=== PATIENT | female | born 1985 | race Caucasian/White ===

== ENCOUNTER 2016-08-12 01:47 | Inpatient (IN) | payer OTHER ==
[~2016-08-12] VITALS: Ht 147.3 cm; Wt 51.3 kg
[2016-08-12] VITALS (12 sets, daily range): BP systolic 97–107; BP diastolic 44–70
[2016-08-12 02:31] LABS: BILIRUBIN,URINE NEGATIVE (NEG); GLUCOSE,URINE NEGATIVE (NEG); NITRITE,URINE NEGATIVE (NEG); PROTEIN,URINE NEGATIVE (NEG-TRACE); UROBILINOGEN,URINE 0.2 mg/dL (0.2 mg/dL)
[2016-08-12 02:43] LABS: BACTERIA,URINE MANY /HPF (0-FEW); RBC,URINE 0 /HPF (0-2); SQUAMOUS EPITHELIAL CELL,UR MOD /LPF
[2016-08-12 03:14] LABS: BASO # 0.1 x10^3/uL (0.0-0.2); BASO % 1 % (0-3); EOS % 1 % (0-3); HEMATOCRIT 38.3 % (36.0-47.0); HEMOGLOBIN 12.4 g/dL (12.0-15.5); LYMPH # 2.2 x10^3/uL (1.0-4.8); LYMPH % 17 % (24-48); MEAN CORPUSCULAR HEMOGLOBIN 29 pg (25-35); MEAN CORPUSCULAR HGB CONC 32 g/dL (31-37); MEAN CORPUSCULAR VOLUME 90 fL (79-100); MONO % 6 % (0-9); NEUT % 76 % (31-73); PLATELET COUNT 324 x10^3/uL (140-400); RED BLOOD COUNT 4.28 x10^6/uL (3.50-5.40); RED CELL DISTRIBUTION WIDTH 13.1 % (11.5-14.5); WHITE BLOOD COUNT 13.3 x10^3/uL (4.0-11.0)
[2016-08-12 03:23] LABS: CALCIUM 8.8 mg/dL (8.5-10.1); GFR 65.6; POTASSIUM 3.5 mmol/L (3.5-5.1)
[2016-08-12 03:28] LABS: ALBUMIN 3.2 g/dL (3.4-5.0); ALBUMIN/GLOBULIN RATIO 0.8 (1.0-1.7); TOTAL BILIRUBIN 0.3 mg/dL (0.2-1.0); TOTAL PROTEIN 7.3 g/dL (6.4-8.2)
[2016-08-12] MEDS ORDERED: CONTRAST GIVEN MC PRN (04:15)
[2016-08-12] MEDS ORDERED: IOHEXOL 300 MG/ML 75 ML VIAL IV ONE (04:30)
--- NOTE | 2016-08-12 05:14 | RAD ---
PROCEDURE CT abdomen pelvis with contrast HISTORY Abdominal pain TECHNIQUE After IV infusion of 75] cc of Optiray-320, helical CT scanning of the abdomen and pelvis was performed.GI contrast was not administered. COMPARISON FINDINGS The liveer is homogeous in appearance and normal in size. The spleen is unremarkable and normal in size. The pancreas is homogeneous in appearance and no focal enlargement is seen. There has been prior cholecystectomy. No focal aneurysmal dilatation of the abdominal aorta is seen. No enlarged abdominal or pelvic lymphadenopathy is seen. No soft tissue mass is seen. No obstructive bowel pattern or bowel wall thickening or inflammatory change is seen. [A trace of free fluid in the pelvis is seen. There is no free air. The lung bases are clear. Both kidneys are functioning and no hydronephrosis or renal mass or perinephric fluid collection is seen. The urinary bladder wall is smooth. No adrenal masses are seen. [A normal appendix is not seen however there is a dilated blind-ending tubular structure medial the cecum consistent with and inflamed appendix measuring 19 millimeters in diameter with mild surrounding inflammation. This is seen in the right parasagittal posterior pelvis. IMPRESSION Acute appendicitis. No abscess or free air. Electronically signed by: Epi Alba MD (Aug 12, 2016 05:13:21)
[2016-08-12] MEDS ORDERED: ACETAMINOPHEN 500 MG TABLET PO ONE (05:30)
[2016-08-12] MEDS ORDERED: MORPHINE SULFATE 4 MG/ML DISP.SYRIN. IV PRN (05:30)
[2016-08-12] MEDS ORDERED: ONDANSETRON PF 4 MG/2 ML VIAL. IV PRN ×3 (05:30→10:15)
[2016-08-12] MEDS ORDERED: ONDANSETRON PF 4 MG/2 ML VIAL. IV ONE (05:30)
[2016-08-12] MEDS ORDERED: MORPHINE SULFATE 4 MG/ML DISP.SYRIN. IV ONE (06:00)
--- NOTE | 2016-08-12 07:55 | PDOC1 ---
History and Physical Date of Admission Date of Admission DATE: 08/12/16 TIME: 07:52 Identification/Chief Complaint Chief Complaint Abd pain Source Source: Patient History of Present Illness History of Present Illness 30 yo female with 1 week of bloating but in the last 24 hours having severe abdominal pain mostly RLQ sharp and constant. Some nausea but no vomiting. Past Medical History Pulmonary: Asthma Past Surgical History Past Surgical History: Cholecystectomy, Tonsillectomy Family History Family History: No Significant Social History Smoke: No ALCOHOL: none Drugs: None Current Medications Current Medications Current Medications Iohexol (Omnipaque 300 Mg/ml) 75 ml 1X ONCE IV Last administered on 08/12/16 04:17; Start 08/12/16 at 04:30; Stop 08/12/16 at 04:31; Status DC Info (Do NOT chart on this entry -- for MONITORING) 1 each PRN DAILY PRN MC SEE COMMENTS; Start 08/12/16 at 04:15; Stop 08/14/16 at 04:14 Acetaminophen (Tylenol) 1,000 mg 1X ONCE PO ; Start 08/12/16 at 05:30; Stop 08/12 at 05:31; Status DC Ondansetron HCl (Zofran) 4 mg 1X ONCE IV Last administered on 08/12/16 05:38; Start 08/12/16 at 05:30; Stop 08/12/16 at 05:31; Status DC Ondansetron HCl (Zofran) 4 mg PRN Q8HRS PRN IV NAUSEA/VOMITING; Start 08/12/16 at 05:30; Stop 08/13/16 at 05:29 Morphine Sulfate 4 mg PRN Q2HR PRN IV SEVERE PAIN; Start 08/12/16 at 05:30; Stop 08/13/16 at 05:29 Morphine Sulfate 4 mg 1X ONCE IV Last administered on 08/12/16 05:39; Start at 06:00; Stop 08/12/16 at 06:01; Status DC Allergies Allergies: Coded Allergies: Sulfa (Sulfonamide Antibiotics) (Verified Allergy, Intermediate, RASH, 08/12) ROS Gastrointestinal: Yes Abdominal Pain, Yes Nausea Physical Exam General: Alert, Oriented X3, Cooperative, mild distress HEENT: Atraumatic, PERRLA, EOMI Lungs: Clear to auscultation, Normal air movement Heart: RRR, no gallops, no murmurs Breasts: Normal Abdomen: Normal bowel sounds, Soft, Other (TTP RLQ) Rectal Exam: not examined Extremities: No edema Skin: No significant lesion Neuro: Normal speech Psych/Mental Status: Mental status NL Vitals Vitals Vital Signs Date Time Temp Pulse Resp B/P Pulse Ox O2 Delivery O2 Flow Rate FiO2 08/12/16 06:15 97.8 72 18 102/60 95 Room Air 97.8 Labs Labs Laboratory Tests Test 08/12/16 01:52 08/12/16 02:30 Urine Collection Type Unknown Urine Color Yellow Urine Clarity Clear Urine pH 6.0 Urine Specific [place] 1.020 Urine Protein Negativemg/dL (NEG-TRACE) Urine Glucose (UA) Negativemg/dL (NEG) Urine Ketones (Stick) Negativemg/dL (NEG) Urine Blood Negative (NEG) Urine Nitrite Negative (NEG) Urine Bilirubin Negative (NEG) Urine Urobilinogen Dipstick 0.2mg/dL (0.2 mg/dL) Urine Leukocyte Esterase Negative (NEG) Urine RBC 0/HPF (0-2) Urine WBC 1-4/HPF (0-4) Urine Squamous Epithelial Cells Mod/LPF Urine Bacteria Many/HPF (0-FEW) Urine Mucus Mod/LPF White Blood Count 13.3x10^3/uL (4.0-11.0) Red Blood Count 4.28x10^6/uL (3.50-5.40) Hemoglobin 12.4g/dL (12.0-15.5) Hematocrit 38.3% (36.0-47.0) Mean Corpuscular Volume 90fL (79-100) Mean Corpuscular Hemoglobin 29pg (25-35) Mean Corpuscular Hemoglobin Concent 32g/dL (31-37) Red Cell Distribution Width 13.1% (11.5-14.5) Platelet Count 324x10^3/uL (140-400) Neutrophils (%) (Auto) 76% (31-73) Lymphocytes (%) (Auto) 17% (24-48) Monocytes (%) (Auto) 6% (0-9) Eosinophils (%) (Auto) 1% (0-3) Basophils (%) (Auto) 1% (0-3) Neutrophils # (Auto) 10.1x10^3uL (1.8-7.7) Lymphocytes # (Auto) 2.2x10^3/uL (1.0-4.8) Monocytes # (Auto) 0.8x10^3/uL (0.0-1.1) Eosinophils # (Auto) 0.1x10^3/uL (0.0-0.7) Basophils # (Auto) 0.1x10^3/uL (0.0-0.2) Sodium Level 139mmol/L (136-145) Potassium Level 3.5mmol/L (3.5-5.1) Chloride Level 102mmol/L (98-107) Carbon Dioxide Level 27mmol/L (21-32) Anion Gap 10 (6-14) Blood Urea Nitrogen 13mg/dL (7-20) Creatinine 1.0mg/dL (0.6-1.0) Estimated GFR (Cockcroft-Gault) 65.6 BUN/Creatinine Ratio 13 (6-20) Glucose Level 89mg/dL (70-99) Calcium Level 8.8mg/dL (8.5-10.1) Total Bilirubin 0.3mg/dL (0.2-1.0) Aspartate Amino Transf (AST/SGOT) 15U/L (15-37) Alanine Aminotransferase (ALT/SGPT) 26U/L (14-59) Alkaline Phosphatase 51U/L (46-116) Total Protein 7.3g/dL (6.4-8.2) Albumin 3.2g/dL (3.4-5.0) Albumin/Globulin Ratio 0.8 (1.0-1.7) Lipase 154U/L (73-393) Laboratory Tests Test 08/12/16 01:52 08/12/16 02:30 Urine Collection Type Unknown Urine Color Yellow Urine Clarity Clear Urine pH 6.0 Urine Specific [place] 1.020 Urine Protein Negativemg/dL (NEG-TRACE) Urine Glucose (UA) Negativemg/dL (NEG) Urine Ketones (Stick) Negativemg/dL (NEG) Urine Blood Negative (NEG) Urine Nitrite Negative (NEG) Urine Bilirubin Negative (NEG) Urine Urobilinogen Dipstick 0.2mg/dL (0.2 mg/dL) Urine Leukocyte Esterase Negative (NEG) Urine RBC 0/HPF (0-2) Urine WBC 1-4/HPF (0-4) Urine Squamous Epithelial Cells Mod/LPF Urine Bacteria Many/HPF (0-FEW) Urine Mucus Mod/LPF White Blood Count 13.3x10^3/uL (4.0-11.0) Red Blood Count 4.28x10^6/uL (3.50-5.40) Hemoglobin 12.4g/dL (12.0-15.5) Hematocrit 38.3% (36.0-47.0) Mean Corpuscular Volume 90fL (79-100) Mean Corpuscular Hemoglobin 29pg (25-35) Mean Corpuscular Hemoglobin Concent 32g/dL (31-37) Red Cell Distribution Width 13.1% (11.5-14.5) Platelet Count 324x10^3/uL (140-400) Neutrophils (%) (Auto) 76% (31-73) Lymphocytes (%) (Auto) 17% (24-48) Monocytes (%) (Auto) 6% (0-9) Eosinophils (%) (Auto) 1% (0-3) Basophils (%) (Auto) 1% (0-3) Neutrophils # (Auto) 10.1x10^3uL (1.8-7.7) Lymphocytes # (Auto) 2.2x10^3/uL (1.0-4.8) Monocytes # (Auto) 0.8x10^3/uL (0.0-1.1) Eosinophils # (Auto) 0.1x10^3/uL (0.0-0.7) Basophils # (Auto) 0.1x10^3/uL (0.0-0.2) Sodium Level 139mmol/L (136-145) Potassium Level 3.5mmol/L (3.5-5.1) Chloride Level 102mmol/L (98-107) Carbon Dioxide Level 27mmol/L (21-32) Anion Gap 10 (6-14) Blood Urea Nitrogen 13mg/dL (7-20) Creatinine 1.0mg/dL (0.6-1.0) Estimated GFR (Cockcroft-Gault) 65.6 BUN/Creatinine Ratio 13 (6-20) Glucose Level 89mg/dL (70-99) Calcium Level 8.8mg/dL (8.5-10.1) Total Bilirubin 0.3mg/dL (0.2-1.0) Aspartate Amino Transf (AST/SGOT) 15U/L (15-37) Alanine Aminotransferase (ALT/SGPT) 26U/L (14-59) Alkaline Phosphatase 51U/L (46-116) Total Protein 7.3g/dL (6.4-8.2) Albumin 3.2g/dL (3.4-5.0) Albumin/Globulin Ratio 0.8 (1.0-1.7) Lipase 154U/L (73-393) Images Images CT show enlarged appendix with inflammation, no abscess VTE Prophylaxis Ordered VTE Prophylaxis Devices: Yes VTE Pharmacological Prophylaxi: Contraindicated Assessment/Plan Assessment/Plan Acute appendicitis Plan L/S Appendectomy ALICIA TRACEY MD Aug 12, 2016 07:55
[2016-08-12] MEDS ORDERED: IV RINGERS,LACTATED 1000ML 1,000 ML IV SCH (08:39)
[2016-08-12] MEDS ORDERED: ROCURONIUM 50 MG/5 ML VIAL. ONE (08:44)
[2016-08-12] MEDS ORDERED: ONDANSETRON PF 4 MG/2 ML VIAL. ONE (08:44)
[2016-08-12] MEDS ORDERED: LIDOCAINE 2% 100 MG/5 ML SYRINGE. ONE (08:44)
[2016-08-12] MEDS ORDERED: PROPOFOL 20 ML IV ONE (08:44)
[2016-08-12] MEDS ORDERED: DEXAMETHASONE SOD PHOS 20 MG/5 ML VIAL. ONE (08:44)
[2016-08-12] MEDS ORDERED: ISOFLURANE 61 TO 120 MINUTES. IH ONE (08:44)
[2016-08-12] MEDS ORDERED: MORPHINE SULFATE 2 MG/ML DISP.SYRIN. IV PRN ×2 (08:45→10:15)
[2016-08-12] MEDS ORDERED: LIDOCAINE 1% 1 ML SYRINGE. ID PRN (08:45)
[2016-08-12] MEDS ORDERED: PROCHLORPERAZINE 10 MG/2 ML VIAL. IV PRN (08:45)
[2016-08-12] MEDS ORDERED: HYDROMORPHONE 2 MG/ML VIAL. IV PRN (08:45)
[2016-08-12] MEDS ORDERED: FENTANYL PF 100 MCG/2 ML VIAL. IV PRN (08:45)
[2016-08-12] MEDS ORDERED: LEVALBUTEROL INH ONE (09:00)
[2016-08-12] MEDS ORDERED: BUPIVACAINE-EPI 0.25%-1:200000 MPF 30 ML VIAL. ONE (09:29)
[2016-08-12] MEDS: PIPERACILLIN/TAZOBACTAM 3.375 GM in IV NORMAL SALINE 50ML 50 ML IV SCH ×4 (09:35→23:45)
[2016-08-12] MEDS ORDERED: NEOSTIGMINE METHYLSULFATE 5 MG/5 ML SYRINGE. ONE (09:53)
[2016-08-12] MEDS ORDERED: GLYCOPYRROLATE 1 MG/5 ML VIAL. ONE (09:53)
[2016-08-12] MEDS ORDERED: IV DEXTROSE 5%-LACT RINGERS 1,000 ML IV SCH (10:03)
[2016-08-12] MEDS ORDERED: OXYCODONE/APAP 5/325 TABLET. PO PRN ×2 (10:15)
[2016-08-12] MEDS ORDERED: 0.9 % SODIUM CHLORIDE 10 ML DISP.SYRIN. IV PRN (10:15)
[2016-08-12] MEDS: FENTANYL PF 100 MCG/2 ML VIAL. IV PRN ×2 (10:16→10:34)
--- NOTE | 2016-08-12 11:22 | ACF ---
Admission Forms Criteria ABDOMINAL PAIN Clinical Indications for Admission to Inpatient Care (Place 'X' for any and all applicable criteria): Admission is indicated for ANY ONE of the following(1)(2)(3)(4)(5): [X]I. Inpatient admission required rather than observation care (Also use Abdominal Pain: Observation Care, as appropriate) because of ANY ONE of the following: [ ]a) Severe pain requiring acute inpatient management [X]b) Identification of etiology/finding that requires inpatient care (eg, aortic dissection, free air) [ ]c) Absent bowel sounds with complete ileus(6) [ ]d) Suspected toxic megacolon [ ]e) Severe electrolyte abnormalities requiring inpatient care [ ]f) High fever or infection requiring inpatient admission as indicated by ANY ONE of following(7)(8): [ ] i) Appropriate outpatient or observational care antimicrobial treatment unavailable, not effective, or not feasible [ ] ii) Documented bacteremia [ ] iii) Temperature > 104.9 degrees F (oral) [ ] iv) T >103.1 F (oral) or < 96.8 F(rectal) that does not respond to all emergency treatment measures [ ]g) Signs of intestinal obstruction [B] [ ]h) Hemodynamic instability [ ]i) IV fluid to replace significant ongoing losses (greater than 3 L/m2 per day) (12)(13) [ ]j) Percutaneous or open drainage (eg, abscess, biliary tract ) procedures [ ]k) Parenteral nutrition regimen that must be implemented on inpatient basis [ ]l) Other condition,treatment or monitoring requiring inpatient admission. [ ]II. Peritoneal signs present [ ]III. Surgery needed that cannot be performed on an ambulatory basis. [ ]IV. Evaluation requires patient to not eat or drink for extended period ( eg, more than 24 hours). [ ]V. Contraindications and/or Inappropriate clinical situations for Observational Care in patients with abdominal pain, when ANY ONE of the following is required: [ ]a) Thorough evaluation is required to prevent catastrophic events due to delays in diagnosing (e.g.Mesenteric ischemia) 1,3 [ ]b) Patient with severe pathology or with chronic symptoms unlikely to improve in the ED stay (3) [ ]. General contraindications and/or Inappropriate clinical situations for Observational Care in patients with abdominal pain, when ANY ONE of the following is required: [ ]a) Prediction of prolongation of LOS based on ANY ONE of the following may be considered as a contraindication for observational care 2, 3, 4, 5, 6, 7, 8, 9, 10, 11 [ ]i) Age > 65 yrs. [ ]ii) Patient arriving by ambulance [ ]iii) Patient with high acuity [ ]iv) Patient requiring vital sign monitoring [ ]v) Patient on IV medication [ ]b) Systolic blood pressures 180mmHg 3,12 [ ]c) Patient with altered mental status including delirium and other alteration of consciousness, (3) [ ]d) Patient whose discharge disposition will be to a longterm home or rehabilitation home should not be managed in Emergency Department Observation Unit. CMS rule requires 3 days hospital stay before such placement.3,13 [ ]e) Patient with failure to thrive due to broad array of etiologies 3,16,17 [ ]f) Inability to ambulate 3,14 Extended stay beyond goal length of stay may be needed for(2)(3): [ ]a) Persistent abdominal pain with suspected intra-abdominal process [ ]b) Diagnosed condition requiring continued stay (e.g., pancreatitis, complicated diverticulitis) [ ]c) Surgery (e.g., colectomy) The original [facility] content created by [employer] has been revised. The portions of the content which have been revised are identified through the use of italic text or in bold, and [facility] has neither reviewed nor approved the modified material.All other unmodified content is copyright [facility]. Please see references footnoted in the original [facility] edition 2016 Admission Criteria Met?: Yes SAMANTHA KEMP Aug 12, 2016 11:22
--- NOTE | 2016-08-12 11:44 | OP ---
DATE OF SURGERY: 08/12/2016 PREOPERATIVE DIAGNOSIS: Acute appendicitis. POSTOPERATIVE DIAGNOSIS: Acute appendicitis. PROCEDURE: Laparoscopic appendectomy. SURGEON: Jose Tracey MD. INDICATIONS: The patient is a 30-year-old female who was admitted to the hospital with a 24-hour history of severe abdominal pain localized in the right lower quadrant. CT scan showing signs consistent with acute appendicitis; no abscess. Procedure of laparoscopic appendectomy was explained to the patient in detail. Risks, benefits were also discussed including bleeding, infection, injury to intra-abdominal contents, possibly sustaining further open operations. Alternatives of this procedure were also discussed with the patient who seemed to understand and gave verbal and written consent to have the procedure performed. DESCRIPTION OF PROCEDURE: The patient was taken to the operating room and placed in the supine position, general anesthesia was initiated. Once the patient was asleep and intubated, her abdomen was prepped and draped in usual sterile fashion using ChloraPrep. An area just below the umbilicus was injected 0.25% Marcaine with epinephrine. Incision made with an 11 blade scalpel and a Veress needle was placed within the abdomen. Pneumoperitoneum was achieved. Once this was complete, a 12 mm port was placed and a 5 mm camera was placed within the abdomen. The abdomen was inspected. No other abnormalities were noted. It was noted that the tip of the appendix was quite dilated inflamed. Two 5 mm ports were then placed, one low in the midline pelvis and one in the right upper quadrant under direct visualization. The camera was moved to the pelvic port. The appendix was grasped. A window was propagated in the mesoappendix with [place] dissector. Endo-JOSEFINA stapler was used to staple and transect the base of the appendix. A second load was used to staple and transect the mesoappendix. Appendix was then placed in an EndoCatch bag and removed from the umbilicus. Right lower quadrant and pelvis were irrigated and suctioned dry. Hemostasis seemed to be appropriate, the pneumoperitoneum was reduced. All ports were removed. Fascial defect at the umbilicus closed with [id number] Vicryl suture and the skin was reapproximated at all port sites with 4-0 subcuticular Monocryl. Mastisol, Steri-Strips and Band-Aids were applied as dressings. The patient was awakened, extubated in the operating room, taken to recovery in stable condition. All sponge, instrument counts listed as correct. Estimated blood loss was 10 mL. JOSE TRACEY MD DR: BISI/curtis JOB#: [id number] / [id number]
[2016-08-12] MEDS: KETOROLAC 15 MG/ML VIAL. IV SCH ×4 (12:00→23:46)
[2016-08-12] MEDS: LACTOBACILLUS ACIDOPH & BULGAR 1 TABLET. PO SCH (17:24)
[2016-08-12] MEDS ORDERED: birth control PO (19:59)
[2016-08-12] MEDS ORDERED: RANI150T2 PO (19:59)
[2016-08-12] MEDS ORDERED: FAMOTIDINE 20 MG TABLET. PO SCH (21:00)
--- NOTE | 2016-08-12 21:58 | PHYS DOC ---
Past Medical History Past Medical History: Asthma, IBS Past Surgical History: Cholecystectomy, Tonsillectomy Alcohol Use: Rarely Drug Use: None Adult General Chief Complaint Chief Complaint: ABDOMINAL PAIN HPI HPI This is a 30-year-old female whose presenting with lower abdominal pain for the last 24 hours with some mild nausea as well. She denies any fever or chills. She does state she has IBS but states this feels different than her usual IBS symptoms. She states she had a stool earlier today that was fairly unremarkable. She denies any other significant health problems. She rates her pain approximately 7 out of 10 on the pain scale but at this time is not requesting any pain medications Review of Systems Review of Systems Constitutional: Denies fever or chills [] Eyes: Denies change in visual acuity, redness, or eye pain [] HENT: Denies nasal congestion or sore throat [] Respiratory: Denies cough or shortness of breath [] Cardiovascular: No additional information not addressed in HPI [] GI: Has abdominal pain, has nausea, denies vomiting, denies bloody stools or diarrhea [] : Denies dysuria or hematuria [] Musculoskeletal: Denies back pain or joint pain [] Integument: Denies rash or skin lesions [] Neurologic: Denies headache, focal weakness or sensory changes [] Endocrine: Denies polyuria or polydipsia [] Current Medications Current Medications Current Medications Medications (Trade) Dose Ordered Sig/[place] Start Time Stop Time Status Last Admin Dose Admin Info (Do NOT chart on this entry -- for MONITORING) 1 each PRN DAILY PRN 08/12/16 04:15 08/14/16 04:14 Iohexol (Omnipaque 300 Mg/ml) 75 ml 1X ONCE 08/12/16 04:30 08/12/16 04:31 DC 08/12/16 04:17 75 ML Physical Exam Physical Exam Constitutional: Well developed, well nourished, no acute distress, non-toxic appearance. [] HENT: Normocephalic, atraumatic, bilateral external ears normal, oropharynx moist, no oral exudates, nose normal. [] Eyes: PERRLA, EOMI, conjunctiva normal, no discharge. [] Neck: Normal range of motion, no tenderness, supple, no stridor. [] Cardiovascular:Heart rate regular rhythm, no murmur [] Lungs & Thorax: Bilateral breath sounds clear to auscultation [] Abdomen: Bowel sounds normal, soft, RLQ tenderness, no masses, no pulsatile masses. [] Skin: Warm, dry, no erythema, no rash. [] Back: No tenderness, no CVA tenderness. [] Extremities: No tenderness, no cyanosis, no clubbing, ROM intact, no edema. [] Neurologic: Alert and oriented X 3, normal motor function, normal sensory function, no focal deficits noted. [] Psychologic: Affect normal, judgement normal, mood normal. [] Current Patient Data Vital Signs Vital Signs Date Time Temp Pulse Resp B/P Pulse Ox O2 Delivery O2 Flow Rate FiO2 08/12/16 02:16 97.6 92 16 116/75 99 Room Air 97.6 Lab Values Laboratory Tests Test 08/12/16 01:52 08/12/16 02:30 Urine Collection Type Unknown Urine Color Yellow Urine Clarity Clear Urine pH 6.0 Urine Specific [place] 1.020 Urine Protein Negativemg/dL (NEG-TRACE) Urine Glucose (UA) Negativemg/dL (NEG) Urine Ketones (Stick) Negativemg/dL (NEG) Urine Blood Negative (NEG) Urine Nitrite Negative (NEG) Urine Bilirubin Negative (NEG) Urine Urobilinogen Dipstick 0.2mg/dL (0.2 mg/dL) Urine Leukocyte Esterase Negative (NEG) Urine RBC 0/HPF (0-2) Urine WBC 1-4/HPF (0-4) Urine Squamous Epithelial Cells Mod/LPF Urine Bacteria Many/HPF (0-FEW) Urine Mucus Mod/LPF White Blood Count 13.3x10^3/uL (4.0-11.0) H Red Blood Count 4.28x10^6/uL (3.50-5.40) Hemoglobin 12.4g/dL (12.0-15.5) Hematocrit 38.3% (36.0-47.0) Mean Corpuscular Volume 90fL (79-100) Mean Corpuscular Hemoglobin 29pg (25-35) Mean Corpuscular Hemoglobin Concent 32g/dL (31-37) Red Cell Distribution Width 13.1% (11.5-14.5) Platelet Count 324x10^3/uL (140-400) Neutrophils (%) (Auto) 76% (31-73) H Lymphocytes (%) (Auto) 17% (24-48) L Monocytes (%) (Auto) 6% (0-9) Eosinophils (%) (Auto) 1% (0-3) Basophils (%) (Auto) 1% (0-3) Neutrophils # (Auto) 10.1x10^3uL (1.8-7.7) H Lymphocytes # (Auto) 2.2x10^3/uL (1.0-4.8) Monocytes # (Auto) 0.8x10^3/uL (0.0-1.1) Eosinophils # (Auto) 0.1x10^3/uL (0.0-0.7) Basophils # (Auto) 0.1x10^3/uL (0.0-0.2) Sodium Level 139mmol/L (136-145) Potassium Level 3.5mmol/L (3.5-5.1) Chloride Level 102mmol/L (98-107) Carbon Dioxide Level 27mmol/L (21-32) Anion Gap 10 (6-14) Blood Urea Nitrogen 13mg/dL (7-20) Creatinine 1.0mg/dL (0.6-1.0) Estimated GFR (Cockcroft-Gault) 65.6 BUN/Creatinine Ratio 13 (6-20) Glucose Level 89mg/dL (70-99) Calcium Level 8.8mg/dL (8.5-10.1) Total Bilirubin 0.3mg/dL (0.2-1.0) Aspartate Amino Transferase (AST) 15U/L (15-37) Alanine Aminotransferase (ALT) 26U/L (14-59) Alkaline Phosphatase 51U/L (46-116) Total Protein 7.3g/dL (6.4-8.2) Albumin 3.2g/dL (3.4-5.0) L Albumin/Globulin Ratio 0.8 (1.0-1.7) L Lipase 154U/L (73-393) Laboratory Tests 08/12/16 02:30 Laboratory Tests 08/12/16 02:30 EKG EKG [] Radiology/Procedures Radiology/Procedures PROCEDURE CT abdomen pelvis with contrast HISTORY Abdominal pain TECHNIQUE After IV infusion of 75] cc of Optiray-320, helical CT scanning of the abdomen and pelvis was performed.GI contrast was not administered. COMPARISON FINDINGS The liveer is homogeous in appearance and normal in size. The spleen is unremarkable and normal in size. The pancreas is homogeneous in appearance and no focal enlargement is seen. There has been prior cholecystectomy. No focal aneurysmal dilatation of the abdominal aorta is seen. No enlarged abdominal or pelvic lymphadenopathy is seen. No soft tissue mass is seen. No obstructive bowel pattern or bowel wall thickening or inflammatory change is seen. [A trace of free fluid in the pelvis is seen. There is no free air. The lung bases are clear. Both kidneys are functioning and no hydronephrosis or renal mass or perinephric fluid collection is seen. The urinary bladder wall is smooth. No adrenal masses are seen. [A normal appendix is not seen however there is a dilated blind-ending tubular structure medial the cecum consistent with and inflamed appendix measuring 19 millimeters in diameter with mild surrounding inflammation. This is seen in the right parasagittal posterior pelvis. IMPRESSION Acute appendicitis. No abscess or free air. Course & Med Decision Making Course & Med Decision Making Pertinent Labs and Imaging studies reviewed. (See chart for details) This 30-year-old female has a CT of her abdomen and pelvis does demonstrate findings consistent with an acute appendicitis. Her laboratory workup was remarkable for slightly elevated WBC count but no other acute abnormalities. Patient was given fluids and pain control and department. I discussed the case with the on-call surgeon, Dr. Lara, who agreed to accept to his surgery service and she will likely go to the OR later today. She was admitted without incident. Dragon Disclaimer Dragon Disclaimer This electronic medical record was generated, in whole or in part, using a voice recognition dictation system. Departure Departure Referrals: UNKNOWN PCP NAME (PCP) REDDY LIVINGSTON DO Aug 12, 2016 21:58
[2016-08-13 03:06] VITALS: BP 97/57
[2016-08-13 03:54] LABS: BASO # 0.1 x10^3/uL (0.0-0.2); BASO % 1 % (0-3); EOS % 0 % (0-3); HEMATOCRIT 34.5 % (36.0-47.0); HEMOGLOBIN 11.3 g/dL (12.0-15.5); LYMPH # 1.4 x10^3/uL (1.0-4.8); LYMPH % 12 % (24-48); MEAN CORPUSCULAR HEMOGLOBIN 30 pg (25-35); MEAN CORPUSCULAR HGB CONC 33 g/dL (31-37); MEAN CORPUSCULAR VOLUME 90 fL (79-100); MONO % 7 % (0-9); NEUT % 80 % (31-73); PLATELET COUNT 344 x10^3/uL (140-400); RED BLOOD COUNT 3.83 x10^6/uL (3.50-5.40); RED CELL DISTRIBUTION WIDTH 13.3 % (11.5-14.5); WHITE BLOOD COUNT 11.2 x10^3/uL (4.0-11.0)
[2016-08-13 04:15] LABS: CALCIUM 9.2 mg/dL (8.5-10.1); CREATININE 1.1 mg/dL (0.6-1.0); GFR 58.7; POTASSIUM 3.4 mmol/L (3.5-5.1)
[2016-08-13] MEDS: PIPERACILLIN/TAZOBACTAM 3.375 GM in IV NORMAL SALINE 50ML 50 ML IV SCH (06:00)
[2016-08-13] MEDS: KETOROLAC 15 MG/ML VIAL. IV SCH (06:01)
[2016-08-13 07:00] VITALS: BP 98/61
[2016-08-13] MEDS: LACTOBACILLUS ACIDOPH & BULGAR 1 TABLET. PO SCH (08:40)
--- NOTE | 2016-08-13 09:34 | DISCH ---
DISCHARGE INSTRUCTIONS Condition on Discharge Condition on Discharge: Stable Activity After Discharge Activity Instructions for Disc: Avoid exertion Other activity instructions: No lifting >20lbs for 2 weeks Diet after Discharge Diet after Discharge: Regular Wound Incision Care Other wound/incision instructi: Mary hernandez starting today Contacting the after DC Call your doctor for: If your condition worsens Follow-Up Follow up with: Dr Tracey in 2 weeks ALICIA TRACEY MD Aug 13, 2016 09:34
--- NOTE | 2016-08-13 09:37 | PDOC3 ---
Discharge Summary Visit Information Date of Admission: Aug 12, 2016 Date of Discharge: Aug 13, 2016 Admitting Diagnosis: Acute appendicitis Final Diagnosis Problems Medical Problems: (1) Appendicitis Status: Acute Brief Hospital Course Allergies Allergies Coded Allergies Type Severity Reaction Last Updated Verified Sulfa (Sulfonamide Antibiotics) Allergy Intermediate RASH 08/12/16 Yes Vital Signs Vital Signs Date Time Temp Pulse Resp B/P Pulse Ox O2 Delivery O2 Flow Rate FiO2 08/13/16 07:00 98.7 80 20 98/61 96 Room Air 98.7 08/12/16 11:56 2.0 Lab Results Laboratory Tests Test 08/12/16 01:15 08/12/16 01:52 08/12/16 02:30 08/13/16 03:40 Bedside Urine HCG, Qualitative Hcg negative (Negative) Urine Collection Type Unknown Urine Color Yellow Urine Clarity Clear Urine pH 6.0 Urine Specific [place] 1.020 Urine Protein Negativemg/dL (NEG-TRACE) Urine Glucose (UA) Negativemg/dL (NEG) Urine Ketones (Stick) Negativemg/dL (NEG) Urine Blood Negative (NEG) Urine Nitrite Negative (NEG) Urine Bilirubin Negative (NEG) Urine Urobilinogen Dipstick 0.2mg/dL (0.2 mg/dL) Urine Leukocyte Esterase Negative (NEG) Urine RBC 0/HPF (0-2) Urine WBC 1-4/HPF (0-4) Urine Squamous Epithelial Cells Mod/LPF Urine Bacteria Many/HPF (0-FEW) Urine Mucus Mod/LPF White Blood Count 13.3x10^3/uL (4.0-11.0) 11.2x10^3/uL (4.0-11.0) Red Blood Count 4.28x10^6/uL (3.50-5.40) 3.83x10^6/uL (3.50-5.40) Hemoglobin 12.4g/dL (12.0-15.5) 11.3g/dL (12.0-15.5) Hematocrit 38.3% (36.0-47.0) 34.5% (36.0-47.0) Mean Corpuscular Volume 90fL (79-100) 90fL (79-100) Mean Corpuscular Hemoglobin 29pg (25-35) 30pg (25-35) Mean Corpuscular Hemoglobin Concent 32g/dL (31-37) 33g/dL (31-37) Red Cell Distribution Width 13.1% (11.5-14.5) 13.3% (11.5-14.5) Platelet Count 324x10^3/uL (140-400) 344x10^3/uL (140-400) Neutrophils (%) (Auto) 76% (31-73) 80% (31-73) Lymphocytes (%) (Auto) 17% (24-48) 12% (24-48) Monocytes (%) (Auto) 6% (0-9) 7% (0-9) Eosinophils (%) (Auto) 1% (0-3) 0% (0-3) Basophils (%) (Auto) 1% (0-3) 1% (0-3) Neutrophils # (Auto) 10.1x10^3uL (1.8-7.7) 8.9x10^3uL (1.8-7.7) Lymphocytes # (Auto) 2.2x10^3/uL (1.0-4.8) 1.4x10^3/uL (1.0-4.8) Monocytes # (Auto) 0.8x10^3/uL (0.0-1.1) 0.8x10^3/uL (0.0-1.1) Eosinophils # (Auto) 0.1x10^3/uL (0.0-0.7) 0.0x10^3/uL (0.0-0.7) Basophils # (Auto) 0.1x10^3/uL (0.0-0.2) 0.1x10^3/uL (0.0-0.2) Sodium Level 139mmol/L (136-145) 141mmol/L (136-145) Potassium Level 3.5mmol/L (3.5-5.1) 3.4mmol/L (3.5-5.1) Chloride Level 102mmol/L (98-107) 105mmol/L (98-107) Carbon Dioxide Level 27mmol/L (21-32) 27mmol/L (21-32) Anion Gap 10 (6-14) 9 (6-14) Blood Urea Nitrogen 13mg/dL (7-20) 9mg/dL (7-20) Creatinine 1.0mg/dL (0.6-1.0) 1.1mg/dL (0.6-1.0) Estimated GFR (Cockcroft-Gault) 65.6 58.7 BUN/Creatinine Ratio 13 (6-20) Glucose Level 89mg/dL (70-99) 119mg/dL (70-99) Calcium Level 8.8mg/dL (8.5-10.1) 9.2mg/dL (8.5-10.1) Total Bilirubin 0.3mg/dL (0.2-1.0) Aspartate Amino Transf (AST/SGOT) 15U/L (15-37) Alanine Aminotransferase (ALT/SGPT) 26U/L (14-59) Alkaline Phosphatase 51U/L (46-116) Total Protein 7.3g/dL (6.4-8.2) Albumin 3.2g/dL (3.4-5.0) Albumin/Globulin Ratio 0.8 (1.0-1.7) Lipase 154U/L (73-393) Laboratory Tests Test 08/13/16 03:40 White Blood Count 11.2x10^3/uL (4.0-11.0) Red Blood Count 3.83x10^6/uL (3.50-5.40) Hemoglobin 11.3g/dL (12.0-15.5) Hematocrit 34.5% (36.0-47.0) Mean Corpuscular Volume 90fL (79-100) Mean Corpuscular Hemoglobin 30pg (25-35) Mean Corpuscular Hemoglobin Concent 33g/dL (31-37) Red Cell Distribution Width 13.3% (11.5-14.5) Platelet Count 344x10^3/uL (140-400) Neutrophils (%) (Auto) 80% (31-73) Lymphocytes (%) (Auto) 12% (24-48) Monocytes (%) (Auto) 7% (0-9) Eosinophils (%) (Auto) 0% (0-3) Basophils (%) (Auto) 1% (0-3) Neutrophils # (Auto) 8.9x10^3uL (1.8-7.7) Lymphocytes # (Auto) 1.4x10^3/uL (1.0-4.8) Monocytes # (Auto) 0.8x10^3/uL (0.0-1.1) Eosinophils # (Auto) 0.0x10^3/uL (0.0-0.7) Basophils # (Auto) 0.1x10^3/uL (0.0-0.2) Sodium Level 141mmol/L (136-145) Potassium Level 3.4mmol/L (3.5-5.1) Chloride Level 105mmol/L (98-107) Carbon Dioxide Level 27mmol/L (21-32) Anion Gap 9 (6-14) Blood Urea Nitrogen 9mg/dL (7-20) Creatinine 1.1mg/dL (0.6-1.0) Estimated GFR (Cockcroft-Gault) 58.7 Glucose Level 119mg/dL (70-99) Calcium Level 9.2mg/dL (8.5-10.1) Brief Hospital Course Ms. Woo is a 30 old female with acute appendicitis underwent L/S Appendectomy without problems. Feeling good today, afebrile and improved wbc plan D/C today Discharge Information Condition at Discharge: Improved Follow Up: Weeks (two) Disposition/Orders: D/C to Home Scheduled ([ control]) 1 TAB PO HS (Reported) Ranitidine Hcl (Ranitidine Hcl) 150 MG PO HS (Reported) ALICIA TRACEY MD Aug 13, 2016 09:37
[2016-08-13 11:00] VITALS: BP 107/72
[2016-08-14] MEDS ORDERED: ONDA4TAB10 SL (05:56)
--- NOTE | 2016-08-14 16:05 | PATHOLOGY ---
PATHOLOGY REPORT * * * * * * * * FINAL DIAGNOSIS: Appendix, laparoscopic appendectomy: - Acute appendicitis. COMMENT: There is no evidence rupture. (JALENM:; d/t: 08/14/16) REPORT ELECTRONICALLY SIGNED BY: Luis Miguel Guan M.D. DATE/TIME: 08/14/2016 16:04 * * * * * * * * GROSS PATHOLOGY: Received in formalin labeled "Brando Patel and appendix," is an appendix measuring 5.3 cm in length and 1.2 cm in diameter with a moderate amount of attached mesoappendix. The serosal surface is pink-qeusada, slightly hemorrhagic, and displays adhesions and white-[place] exudate. Sectioning reveals a 0.8 cm in diameter lumen filled with quesada and friable soft material. The mucosa is quesada and grossly unremarkable. The wall is uniform, thickened, and measures 0.3 cm. Heel [place] sections are submitted as follows: A1 bisected distal tip and proximal resection margin A2-A3 sections by appendix (TTL; 08/13/2016) INITIAL CPT CODE(S): 27195 Professional services performed [place] [employer] [place] [address] Technical services performed by [employer] at [address] [place] [address] [address], [place] [address]. SPECIMEN(S) RECEIVED: A.Appendix CLINICAL HISTORY: Appendicitis PATIENT: BRANDO PATEL /AGE: 611/03/1985 (Age: 30) PATIENT #: [id number] ALT CASE #: SPECIMEN COLLECTION DATE: 08/12/2016 SPECIMEN RECEIVED DATE: 08/13/2016 [facility] - [address] [place] [address] - PHONE: [phone] * * * END OF REPORT * * *
== END 2016-08-13 12:45 | disposition home or self-care (01) | DRG 342 ==
LOC: ER 01:47 → 4 NORTH 05:18
PROVIDERS: ADMIT Surgery; ATTEND Surgery
PROC: 0DTJ4ZZ Resection of Appendix, Percutaneous Endoscopic Approach (ICD-10-PCS; principal; 2016-08-12 09:00)
DX: K35.80 Unspecified acute appendicitis (principal); E44.1 Mild protein-calorie malnutrition; J45.909 Unspecified asthma, uncomplicated; K58.9 Irritable bowel syndrome, unspecified; Z90.49 Acquired absence of other specified parts of digestive tract
CPT/HCPCS: 36415; 74177; 80048; 80053; 81001; 81025; 83690; 85027; 87086; 88304; C1782; J1100; J1885; J2270; J2405; J2543; J2704; J2710; J3010; J3490; J7030; J7120; Q9967; 99285-25

== ENCOUNTER 2016-08-14 03:57 | Emergency (ER) | payer OTHER ==
[~2016-08-14] VITALS: Ht 147.3 cm; Wt 50.3 kg
[~2016-08-14 03:57] MED LIST: RANI150T2 PO; birth control PO
--- NOTE | 2016-08-14 04:24 | PHYS DOC ---
Past Medical History Past Medical History: Asthma, IBS Past Surgical History: Appendectomy, Cholecystectomy, Tonsillectomy Alcohol Use: Occasionally Drug Use: None Adult General Chief Complaint Chief Complaint: NAUSEA/VOMITING/DIARRHA HPI HPI Patient is a 30 year old female who presents with vomiting. Patient is 2 days s/p laparoscopic appendectomy by Dr. Tracey. Reports this morning she felt nauseated & vomited once. She was instructed to come to the ED after consulting with welding production supervisor surgeon. She denies fevers/chills, hematemesis, diarrhea, dysuria, hematuria. She has not had a bowel movement since surgery. She states her pain is controlled with medication given at time of hospital discharge, unchanged today. Also has history of asthma & cholecystectomy. Review of Systems Review of Systems Constitutional: Denies fever or chills HENT: Denies nasal congestion or sore throat Respiratory: Denies cough or shortness of breath Cardiovascular: Denies chest pain or edema GI: Reports nausea & vomiting, denies abdominal pain, bloody stools or diarrhea : Denies dysuria or hematuria Musculoskeletal: Denies back pain or joint pain Integument: Denies rash or skin lesions Neurologic: Denies headache, focal weakness or sensory changes Current Medications Current Medications Current Medications Medications (Trade) Dose Ordered Sig/[place] Start Time Stop Time Status Last Admin Dose Admin Ketorolac Tromethamine (Toradol) 30 mg 1X ONCE 08/14/16 05:00 08/14/16 05:01 DC 08/14/16 05:03 30 MG Ondansetron HCl (Zofran) 4 mg 1X ONCE 08/14/16 05:00 08/14/16 05:01 DC 08/14/16 05:03 4 MG Allergies Allergies Allergies Coded Allergies Type Severity Reaction Last Updated Verified Sulfa (Sulfonamide Antibiotics) Allergy Intermediate RASH 08/12/16 Yes Physical Exam Physical Exam Constitutional: Well developed, well nourished, no acute distress, non-toxic appearance. HENT: Normocephalic, atraumatic, bilateral external ears normal, oropharynx moist, nose normal. Eyes: conjunctiva normal, no discharge. Neck: supple, no stridor. Cardiovascular: RRR, no murmurs, no edema. Lungs & Thorax: LCTAB, no wheezing, no respiratory distress. Abdomen: hypoactive bowel sounds, soft, mild generalized tenderness, no focal tenderness, no rebound/guarding, no masses, nondistended. laparoscopic incisions with steri strips in place, no erythema/warmth/swelling, no purulent drainage. Skin: Warm, dry, no erythema, no rash. Back: No CVA tenderness. Extremities: No tenderness, no edema. Neurologic: Alert and oriented X 3, no focal deficits noted. Psychologic: Affect normal, judgement normal, mood normal. Current Patient Data Vital Signs Vital Signs Date Time Temp Pulse Resp B/P Pulse Ox O2 Delivery O2 Flow Rate FiO2 08/14/16 06:00 81 99/67 94 Room Air 08/14/16 04:03 97.8 18 97.8 Lab Values Laboratory Tests Test 08/14/16 03:52 08/14/16 04:58 POC Urine HCG, Qualitative Hcg negative (Negative) White Blood Count 13.3x10^3/uL (4.0-11.0) H Red Blood Count 3.67x10^6/uL (3.50-5.40) Hemoglobin 10.9g/dL (12.0-15.5) L Hematocrit 33.1% (36.0-47.0) L Mean Corpuscular Volume 90fL (79-100) Mean Corpuscular Hemoglobin 30pg (25-35) Mean Corpuscular Hemoglobin Concent 33g/dL (31-37) Red Cell Distribution Width 13.5% (11.5-14.5) Platelet Count 314x10^3/uL (140-400) Neutrophils (%) (Auto) 80% (31-73) H Lymphocytes (%) (Auto) 14% (24-48) L Monocytes (%) (Auto) 5% (0-9) Eosinophils (%) (Auto) 1% (0-3) Basophils (%) (Auto) 1% (0-3) Neutrophils # (Auto) 10.6x10^3uL (1.8-7.7) H Lymphocytes # (Auto) 1.8x10^3/uL (1.0-4.8) Monocytes # (Auto) 0.7x10^3/uL (0.0-1.1) Eosinophils # (Auto) 0.1x10^3/uL (0.0-0.7) Basophils # (Auto) 0.1x10^3/uL (0.0-0.2) Urine Collection Type Unknown Urine Color Yellow Urine Clarity Cloudy Urine pH 7.5 Urine Specific [place] 1.015 Urine Protein Negativemg/dL (NEG-TRACE) Urine Glucose (UA) Negativemg/dL (NEG) Urine Ketones (Stick) Negativemg/dL (NEG) Urine Blood Negative (NEG) Urine Nitrite Negative (NEG) Urine Bilirubin Negative (NEG) Urine Urobilinogen Dipstick 0.2mg/dL (0.2 mg/dL) Urine Leukocyte Esterase Negative (NEG) Urine RBC Occ/HPF (0-2) Urine WBC Occ/HPF (0-4) Urine Squamous Epithelial Cells Many/LPF Urine Bacteria Many/HPF (0-FEW) Urine Mucus Slight/LPF Sodium Level 140mmol/L (136-145) Potassium Level 3.9mmol/L (3.5-5.1) Chloride Level 105mmol/L (98-107) Carbon Dioxide Level 27mmol/L (21-32) Anion Gap 8 (6-14) Blood Urea Nitrogen 12mg/dL (7-20) Creatinine 0.9mg/dL (0.6-1.0) Estimated GFR (Cockcroft-Gault) 74.0 Glucose Level 89mg/dL (70-99) Calcium Level 8.6mg/dL (8.5-10.1) Laboratory Tests 08/14/16 04:58 Laboratory Tests 08/14/16 04:58 Microbiology 08/14/16 Urine Culture - Final, Complete 08/14/16 Urine Culture Result 1 (BRANT) - Final, Complete EKG EKG [] Radiology/Procedures Radiology/Procedures [] Course & Med Decision Making Course & Med Decision Making Pertinent Labs and Imaging studies reviewed. (See chart for details) Patient presents with postoperative vomiting. No further vomiting here. Gave zofran & pain medication. Labs as above, WBC slightly increased from time of discharge. She felt better. Consulted with Dr. Mars welding production supervisor for Dr. Tracey , recommends okay to discharge home, okay to give prescription for zofran to take with pain medication. Patient says she will probably try to manage pain with just naproxen or tylenol unless severe. Dr. Mars recommended follow up in the morning with Dr. Tracey; call clinic in the morning for an appointment. Patient instructed to return for high fever, severe pain, uncontrolled vomiting , any otherwise worsening condition. Discharged home in stable & improved condition. [] Dragon Disclaimer Dragon Disclaimer This electronic medical record was generated, in whole or in part, using a voice recognition dictation system. Departure Departure Impression: Primary Impression: Nausea & vomiting Disposition: 01 HOME, SELF-CARE Condition: IMPROVED Referrals: UNKNOWN PCP NAME (PCP) ALICIA TRACEY MD Patient Instructions: Nausea and Vomiting, [id number] Additional Instructions: You were seen in the emergency department today for vomiting after surgery. Labs did not show any serious findings. Take Zofran as needed for nausea. Try not to take oxycodone on an empty stomach. If you feel that your pain is adequately controlled, it is okay to use naproxen or Tylenol instead of oxycodone. Call Dr. Tracey's clinic this morning to schedule follow-up appointment for later this week. Return to the emergency department for high fever, severe pain, uncontrolled vomiting, any otherwise worsening condition. Scripts Ondansetron (Zofran Odt)4 Mg Tab.rapdis1 Tab SL Q8HRS PRN NAUSEA/VOMITING #10 TAB Prov:GILBERT HOANG MD 08/14/16 GILBERT HOANG MD Aug 14, 2016 04:24
[2016-08-14] MEDS ORDERED: KETOROLAC TROMETHAMINE 30 MG/ML INJ. IV ONE (05:00)
[2016-08-14] MEDS ORDERED: ONDANSETRON PF 4 MG/2 ML VIAL. IV ONE (05:00)
[2016-08-14 05:07] LABS: BILIRUBIN,URINE NEGATIVE (NEG); GLUCOSE,URINE NEGATIVE (NEG); NITRITE,URINE NEGATIVE (NEG); PH,URINE 7.5; PROTEIN,URINE NEGATIVE (NEG-TRACE); UROBILINOGEN,URINE 0.2 mg/dL (0.2 mg/dL)
[2016-08-14 05:13] LABS: BASO # 0.1 x10^3/uL (0.0-0.2); BASO % 1 % (0-3); EOS % 1 % (0-3); HEMATOCRIT 33.1 % (36.0-47.0); HEMOGLOBIN 10.9 g/dL (12.0-15.5); LYMPH # 1.8 x10^3/uL (1.0-4.8); LYMPH % 14 % (24-48); MEAN CORPUSCULAR HEMOGLOBIN 30 pg (25-35); MEAN CORPUSCULAR HGB CONC 33 g/dL (31-37); MEAN CORPUSCULAR VOLUME 90 fL (79-100); MONO % 5 % (0-9); NEUT % 80 % (31-73); PLATELET COUNT 314 x10^3/uL (140-400); RED BLOOD COUNT 3.67 x10^6/uL (3.50-5.40); RED CELL DISTRIBUTION WIDTH 13.5 % (11.5-14.5); WHITE BLOOD COUNT 13.3 x10^3/uL (4.0-11.0)
[2016-08-14 05:14] LABS: BACTERIA,URINE MANY /HPF (0-FEW); RBC,URINE OCC /HPF (0-2); SQUAMOUS EPITHELIAL CELL,UR MANY /LPF; WBC,URINE OCC /HPF (0-4)
[2016-08-14 05:32] LABS: CALCIUM 8.6 mg/dL (8.5-10.1); CREATININE 0.9 mg/dL (0.6-1.0); POTASSIUM 3.9 mmol/L (3.5-5.1)
[2016-08-14] MEDS ORDERED: ONDA4TAB10 SL (05:56)
[2016-08-14 06:00] VITALS: BP 99/67
== END 2016-08-14 06:06 | disposition home or self-care (01) ==
LOC: ER 03:57
DX: R11.2 Nausea with vomiting, unspecified (principal); R19.7 Diarrhea, unspecified; J45.909 Unspecified asthma, uncomplicated; K58.9 Irritable bowel syndrome, unspecified; Z90.49 Acquired absence of other specified parts of digestive tract; Z88.2 Allergy status to sulfonamides
CPT/HCPCS: 36415; 80048; 81001; 81025; 85027; 87086; 96374; 96375; 99284; J1885; J2405; 99285-25

== ENCOUNTER 2018-02-09 19:41 | Emergency (ER) | payer OTHER ==
[~2018-02-09] VITALS: Ht 149.9 cm; Wt 50.3 kg
[~2018-02-09 19:41] MED LIST changes: +ONDA4TAB10 SL
--- NOTE | 2018-02-09 23:49 | RAD ---
INDICATION: Right calf swelling COMPARISON: None. TECHNIQUE: Grayscale, color and doppler ultrasound images were obtained of the right lower extremity venous vasculature. RIGHT: No thrombus identified in the common femoral vein, femoral vein, popliteal vein or visualized calf veins. IMPRESSION: 1. No thrombus identified in deep venous system of right lower extremity. 2. Thrombus is seen within the lesser saphenous vein. Electronically signed by: Zhang Weber MD (02/09/2018 11:45 PM) [facility]
[2018-02-10 00:11] VITALS: BP 109/63
[2018-02-10] MEDS ORDERED: CEPH500C PO (00:16)
[2018-02-10] MEDS ORDERED: NAPR-514 PO (00:16)
--- NOTE | 2018-02-10 00:16 | PHYS DOC ---
Past Medical History Past Medical History: Asthma, IBS Past Surgical History: Appendectomy, Cholecystectomy, Tonsillectomy Alcohol Use: Occasionally Drug Use: None Adult General Chief Complaint Chief Complaint: LOWER EXTREMITY SWELLING HPI HPI Patient is a 32 year old Female who presents to the emergency department with complaints of right calf redness, pain, and swelling with no known injury. She reports concerns that she has a blood clot. Patient denies any recent travel via car or plane. She denies any tobacco use or control use. Patient states that the pain began this morning and it started off as as sharp pain similar to a [place] horse.Currently she rates the pain as a 4/10 on the pain scale. Review of Systems Review of Systems Constitutional: Denies fever or chills [] Eyes: Denies change in visual acuity, redness, or eye pain [] HENT: Denies nasal congestion or sore throat [] Respiratory: Denies cough or shortness of breath [] Musculoskeletal: Denies joint pain [] Integument: reports red, warm, tender area to lateral R lower calf Neurologic: Denies headache, focal weakness or sensory changes [] All other systems were reviewed and found to be within normal limits, except as documented in this note. Allergies Allergies Allergies Coded Allergies Type Severity Reaction Last Updated Verified Sulfa (Sulfonamide Antibiotics) Allergy Intermediate RASH 08/12/16 Yes Physical Exam Physical Exam Constitutional: Well developed, well nourished, no acute distress, non-toxic appearance. [] HENT: Normocephalic, atraumatic, bilateral external ears normal, oropharynx moist, no oral exudates, nose normal. [] Eyes: PERRLA, conjunctiva normal, no discharge. [] Lungs & Thorax: Respirations even, unlabored] Skin: Warm, dry, 3 cm diameter area of erythema and warmth noted to lower portion of right calf that is tender to palpation. Extremities: No cyanosis, no clubbing, ROM intact, no edema; RLE Pedal and posterior tibial pulses 2+. [] Neurologic: Alert and oriented X 3, normal motor function, normal sensory function, no focal deficits noted. [] Psychologic: Affect normal, judgement normal, mood normal. [] Current Patient Data Vital Signs Vital Signs Date Time Temp Pulse Resp B/P (MAP) Pulse Ox O2 Delivery O2 Flow Rate FiO2 10/1/18 00:11 82 16 109/63 (78) 96 Room Air 02/09/18 20:10 98.4 98.4 EKG EKG [] Radiology/Procedures Radiology/Procedures PROCEDURE: VENOUS LOWER EXTREMITY RIGHT INDICATION: Right calf swelling COMPARISON: None. TECHNIQUE: Grayscale, color and doppler ultrasound images were obtained of the right lower extremity venous vasculature. RIGHT: No thrombus identified in the common femoral vein, femoral vein, popliteal vein or visualized calf veins. IMPRESSION: 1. No thrombus identified in deep venous system of right lower extremity. 2. Thrombus is seen within the lesser saphenous vein. [] Course & Med Decision Making Course & Med Decision Making Pertinent Labs and Imaging studies reviewed. (See chart for details) Dx: thrombophlebitis of superficial vein of RLE Ultrasound was negative for deep vein thrombosis. There was a thrombosis of the lesser saphenous vein present. Prescriptions written for naproxen and cephalexin. PT was instructed to apply warm packs to the area four times a day and as needed. Follow up with your primary care doctor or return to the ER for a repeat ultrasound of your leg in 5 -7 days. Pt verbalized an understanding of discharge, medications, follow-up, home care, and return to ED precautions, was in agreement with POC. Staff Physician Addendum: I was working in the ER during the course of this patient's visit. I was available for consultation as needed, but I was not directly involved in the care of this patient. [] Dragon Disclaimer Dragon Disclaimer This electronic medical record was generated, in whole or in part, using a voice recognition dictation system. Departure Departure Impression: Primary Impression: Thrombophlebitis of superficial veins of right lower extremity Disposition: 01 HOME, SELF-CARE Condition: STABLE Referrals: RODRÍGUEZ POST MD (PCP) Patient Instructions: Vascular Ultrasound Additional Instructions: You have been diagnosed with superficial thrombophlebitis of your left leg. Apply warm packs to the area four times a day and as needed. Fill the prescriptions and take them as directed. Follow up with your primary care doctor or return to the ER for a repeat ultrasound of your leg in 5-7 days. Scripts Cephalexin (CEPHALEXIN) 500 Mg Capsule 1 CAP PO QID, #40 CAP Prov: ELAYNE ALONSO KILN HEAD HOUSE OPERATOR 02/10/18 Naproxen (NAPROXEN) 500 Mg Tablet 500 MG PO BID for 14 Days, #28 TAB 0 Refills Prov: ELAYNE ALONSO APRN 02/10/18 ELAYNE ALONSO APRN Feb 10, 2018 00:16 MADISYN ALEXANDER MD Feb 12, 2018 06:18
== END 2018-02-10 00:27 | disposition home or self-care (01) ==
LOC: ER 19:41
DX: I80.01 Phlebitis and thrombophlebitis of superficial vessels of right lower extremity (principal); K58.9 Irritable bowel syndrome, unspecified; J45.909 Unspecified asthma, uncomplicated; Z90.49 Acquired absence of other specified parts of digestive tract; Z90.89 Acquired absence of other organs; Z88.2 Allergy status to sulfonamides
CPT/HCPCS: 93971; 99284-25